=== PATIENT | male | born 1970 | race American Indian/Alaskan Native ===

== ENCOUNTER 2019-02-10 07:53 | Emergency (ER) | payer OTHER ==
[2019-02-10 08:01] VITALS: BP 114/61
[2019-02-10] MEDS ORDERED: TORADOL IM ONE (08:31)
[2019-02-10] MEDS ORDERED: FLEXERIL PO ONE (08:31)
--- NOTE | 2019-02-10 08:33 | Emergency Department Report ---
HPI - General Chief Complaint: Back Pain/Injury Time Seen by Provider: 02/10/19 08:17 - HPI HPI: 48-year-old male presents to the emergency department with a complaint of generalized back pain and spasms that has been going on since last night. He denies of any trauma or known injury. He denies any problems with bowel or bladder, numbness or paresthesias or any neurological deficits. He was brought in by his sister to be seen. He does not have a primary care physician. He has not taken anything for his symptoms prior to arrival today. No recent travel or sick contacts at home. ED Past Medical Hx - Past Medical History Previous Medical History?: No Additional medical history: PNEUMONIA - Surgical History Additional Surgical History: BACK - Social History Smoking Status: Never Smoker Substance Use Type: None - Medications Home Medications: Home Medications Medication Instructions Recorded Confirmed Last Taken Type Cyclobenzaprine HCl [Flexeril 5 MG 5 mg PO TID PRN #10 tab 02/10/19 Unknown Rx TAB] Ibuprofen [Motrin 600 MG tab] 600 mg PO Q8H PRN #20 tablet 02/10/19 Unknown Rx ED Review of Systems ROS: Stated complaint: BACK PAIN Other details as noted in HPI Comment: All other systems reviewed and negative Constitutional: denies: chills, fever Gastrointestinal: denies: abdominal pain Musculoskeletal: back pain. denies: joint swelling Skin: denies: rash, lesions Neurological: denies: weakness, numbness, paresthesias Physical Exam - Physical Exam Vital Signs: Vital Signs 02/10/19 08:00 Temperature 98.3 F Pulse Rate 100 H Respiratory 18 Rate Blood Pressure 114/61 O2 Sat by Pulse 98 Oximetry Physical Exam: GENERAL: The patient is well-developed well-nourished. HENT: Normocephalic. Atraumatic. Patient has moist mucous membranes. EYES: Extraocular motions are intact. NECK: Supple. Trachea is midline. CHEST/LUNGS: Clear to auscultation. There is no respiratory distress noted. HEART/CARDIOVASCULAR: Regular. There is no tachycardia. There is no murmur. ABDOMEN: Abdomen is soft, nontender. Patient has normal bowel sounds. There is no abdominal distention. SKIN: Skin is warm and dry. NEURO: The patient is awake, alert, and oriented. The patient is cooperative. The patient has no focal neurologic deficits. The patient has normal speech. DTR patella +2 over 4 bilaterally. MUSCULOSKELETAL: There is no tenderness or deformity. There is no limitation range of motion. There is no evidence of acute injury. Muscle strength 5 out of 5 upper and lower extremities bilaterally. ED Course Vital Signs 02/10/19 08:00 Temperature 98.3 F Pulse Rate 100 H Respiratory 18 Rate Blood Pressure 114/61 O2 Sat by Pulse 98 Oximetry ED Medical Decision Making - Medical Decision Making This patient presents to the emergency department with some lower back spasms that have been going on since last night. This is atraumatic. He does not have any problems with bowel or bladder, numbness or paresthesias or any neurological deficits. He appears low suspicion for any of the emergent condition such as cauda equina, epidural abscess or cord compression syndrome. No midline pain. For all these reasons, I did not feel any imaging was necessary at this time. He was given a shot of Toradol and Flexeril. Upon reevaluation he is resting comfortably in the spasms appeared to have subsided. He remained in the emergency department until he was picked up by someone to take responsibility for him. He has been given a referral for orthopedist. He will return to the ER with any worsening of his symptoms or any acute distress. - Differential Diagnosis muscle spasm, lumbar strain, UTI Critical Care Time: No Critical care attestation.: If time is entered above; I have spent that time in minutes in the direct care of this critically ill patient, excluding procedure time. ED Disposition Clinical Impression: Muscle spasm of back Back pain Qualifiers: Back pain location: low back pain Chronicity: acute Back pain laterality: bilateral Sciatica presence: without sciatica Qualified Code(s): M54.5 - Low back pain Disposition: DC-01 TO HOME OR SELFCARE Is pt being admited?: No Condition: Stable Instructions: Muscle Spasm (ED), Back Pain (ED) Additional Instructions: Please follow up with a primary care physician in the next few days. I am also giving you a referral for a local orthopedist, Dr. Hernandez, to follow-up guarding or back pains. Return to the emergency Department with any worsening of your symptoms or any acute distress. You have been prescribed a medication that is sedating and therefore should not be taken prior to driving, working, and responsible for children and in no way should be mixed with alcohol of any quantity. Prescriptions: Cyclobenzaprine HCl [Flexeril 5 MG TAB] 5 mg PO TID PRN #10 tab PRN Reason: Muscle Spasm Ibuprofen [Motrin 600 MG tab] 600 mg PO Q8H PRN #20 tablet PRN Reason: Pain Referrals: ALEX HERNANDEZ MD [Staff Physician] - 2-3 Days [facility] [Outside] - 2-3 Days Time of Disposition: 09:40
== END 2019-02-10 09:54 | disposition home or self-care (01) ==
LOC: ED 07:53
DX: M62.830 Muscle spasm of back (principal); Z88.0 Allergy status to penicillin
CPT/HCPCS: 96372; 99282; J1885

== ENCOUNTER 2019-02-15 03:38 | Emergency (ER) | payer OTHER ==
[2019-02-15 04:01] VITALS: BP 177/72
--- NOTE | 2019-02-15 07:42 | Emergency Department Report ---
ED Back Pain/Injury HPI - General Chief Complaint: Back Pain/Injury Stated Complaint: BACK PAIN Time Seen by Provider: 02/15/19 07:25 Source: patient Limitations: No Limitations - History of Present Illness Initial Comments: This is a 48-year-old after [place] male who presents to the emergency room with acute on chronic low back pain. 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 Patient states he has surgery to his back several years ago and every now and then he had an acute flare. Patient states he was seen in an emergency room on last and prescribed Flexeril which is not helping pain. Patient currently reports pain is 10 out of 10 on pain scale and worse with movement. He reports pain as a sharp radiating intensity to her right lower extremity. He denies change in bowel or urinary pattern, weakness, numbness, paresthesias, swelling, bruising, or fever. MD Complaint: back pain Onset/Timin -: week(s) Similar Symptoms Previously: Yes Place: street Radiation: right leg Severity: severe Severity scale (0 -10): 10 Quality: sharp Consistency: intermittent Improves With: none Worsens With: movement Context: bending Associated Symptoms: denies: numbness, difficulty urinating, incontinence, fever/chills Treatments Prior to Arrival: heat therapy, other medications (Flexeril muscle relaxers) - Related Data Previous Rx's Medication Instructions Recorded Last Taken Type Cyclobenzaprine HCl [Flexeril 5 MG 5 mg PO TID PRN #10 tab 02/10/19 02/14/19 Rx TAB] Ibuprofen [Motrin 600 MG tab] 600 mg PO Q8H PRN #20 tablet 02/10/19 02/14/19 Rx methOCARBAMOL [Robaxin TAB] 750 mg PO Q8H PRN #15 tablet 02/15/19 Unknown Rx Allergies Allergy/AdvReac Type Severity Reaction Status Date / Time Penicillins AdvReac Unknown Verified 07/06/15 20:00 ED Review of Systems ROS: Stated complaint: BACK PAIN Other details as noted in HPI Constitutional: denies: chills, fever Respiratory: denies: cough, shortness of breath, wheezing Cardiovascular: denies: chest pain, palpitations Gastrointestinal: denies: abdominal pain, nausea, diarrhea Musculoskeletal: back pain. denies: joint swelling, arthralgia Skin: denies: rash, lesions Neurological: denies: headache, weakness, paresthesias Psychiatric: denies: anxiety, depression ED Past Medical Hx - Past Medical History PNEUMONIA ED Back Pain Physical Exam - Exam General: Vital signs noted. No distress. Alert and acting appropriately. Back/Abdomen: Yes Sacroiliac Tenderness (bilaterally), Yes Straight Leg Raise Pain (right leg), No Abdominal Tenderness, No Perithoracic Tenderness, No Perilumbar Tenderness, No Flank Tenderness Neuro: Yes Normal Sensation, Yes Normal DTR's, Yes Normal Gait, No Motor Weakness ED Course Vital Signs 02/15/19 03:59 Temperature 97.9 F Pulse Rate 94 H Respiratory 18 Rate Blood Pressure 177/72 O2 Sat by Pulse 98 Oximetry ED Medical Decision Making - Medical Decision Making Patient was examined by me. Patient is nontoxic appearing and stable. Vitals are normal. This is acute on chronic low back pain. Patient seen in the emergency room last week after symptoms started and prescribed Flexeril and ibuprofen. States Flexeril no improvement in his symptoms. On focal exam negative spinal tenderness, change in bowel or urinary pattern. Past medical history of back surgery and intermittent back pain. He was referred to orthop edics but never followed up. Given analgesics while in the ER. Start Robaxin for pain. Referral to orthopedics and pain management. Patient discharged home in stable condition. Critical care attestation.: If time is entered above; I have spent that time in minutes in the direct care of this critically ill patient, excluding procedure time. ED Disposition Clinical Impression: Muscle spasm of back Back pain Qualifiers: Back pain location: low back pain Chronicity: acute Back pain laterality: bilateral Sciatica presence: with sciatica Sciatica laterality: sciatica of rig ht side Qualified Code(s): M54.41 - Lumbago with sciatica, right side Disposition: TO HOME OR SELFCARE Is pt being admited?: No Does the pt Need Aspirin: No Condition: Stable Instructions: Chronic Back Pain (ED), Low Back Strain (ED) Additional Instructions: Rest Use ice or heat on affected area for 20 minutes and off for 2 hours. Take pain medication every 6-8 hours as needed for pain. Don't drive or operate heavy machinery while taking the Robaxin muscle relaxers because they may cause drowsiness. Follow up with Primary Care Provider in 2-3 days. Prescriptions: methOCARBAMOL [Robaxin TAB] 750 mg PO Q8H PRN #15 tablet PRN Reason: Muscle Spasm Referrals: [facility] [Outside] - 3-5 Days CAMERON LINCOLN MD [Primary Care Provider] - 3-5 Days ALEX GARCIA MD [Staff Physician] - 3-5 Days [facility] [Provider Group] - 3-5 Days [facility] [Provider Group] - 3-5 Days Forms: Work/School Release Form(ED) Time of Disposition: 08:41
[2019-02-15] MEDS ORDERED: TORADOL IM ONE (07:44)
[2019-02-15] MEDS ORDERED: TORADOL ONE (08:00)
== END 2019-02-15 08:54 | disposition home or self-care (01) ==
LOC: ED 03:38
DX: M54.41 Lumbago with sciatica, right side (principal); G89.29 Other chronic pain; Z88.0 Allergy status to penicillin; Z79.899 Other long term (current) drug therapy
CPT/HCPCS: 96372; 99282; J1885

== ENCOUNTER 2019-04-28 15:49 | Emergency (ER) | payer OTHER ==
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
[2019-04-28 19:00] VITALS: BP 146/90
== END 2019-04-28 18:57 | disposition home or self-care (01) ==
LOC: ED 15:49
DX: S39.012A Strain of muscle, fascia and tendon of lower back, initial encounter (principal); I10 Essential (primary) hypertension; V49.49XA Driver injured in collision with other motor vehicles in traffic accident, initial encounter; Y93.9 Activity, unspecified; Y92.89 Other specified places as the place of occurrence of the external cause; Y99.8 Other external cause status
CPT/HCPCS: 72070; 72100; 99283

== ENCOUNTER 2019-07-27 18:34 | Emergency (ER) | payer SELFPAY | END 2019-07-27 20:22 | disposition left against medical advice (07) | LOC: ED 18:34 | DX: R10.9 Unspecified abdominal pain (principal); Z53.21 Procedure and treatment not carried out due to patient leaving prior to being seen by health care provider ==

== ENCOUNTER 2019-10-22 05:15 | Emergency (ER) | payer OTHER ==
--- NOTE | 2019-10-22 07:35 | Emergency Department Report ---
ED Medical Clearance HPI - General Chief complaint: Medical Clearance Stated complaint: MED CLEARANCE Time Seen by Provider: 10/22/19 07:15 Source: patient Mode of arrival: Ambulatory Limitations: No Limitations - History of Present Illness Initial comments: This is a 48-year-old -Irish male who presents to the emergency room for medical clearance. Past medical history of hypertension. Patient states he is going to a detox center in [facility]. He is hoping to be admitted today. His sister is taking him there as soon as he leaves here. Patient states he last used crack cocaine and marijuana a few minutes prior to arrival. He denies chest pain, palpitations, shortness of breath, wheezing, cough, chills, nausea, vomiting, or diarrhea. MD Complaint: medical clearance request Reason for Medical Clearance: intoxication Place: home Alledged Intoxication: Yes Compliant with Home Medications: No Treatments Prior to Arrival: none Home medications: Previous Rx's Medication Instructions Recorded Last Taken Type Cyclobenzaprine HCl [Flexeril 5 MG 5 mg PO TID PRN #10 tab 02/10/19 02/14/19 Rx TAB] Ibuprofen [Motrin 600 MG tab] 600 mg PO Q8H PRN #20 tablet 02/10/19 02/14/19 Rx methOCARBAMOL [Robaxin TAB] 750 mg PO Q8H PRN #15 tablet 02/15/19 Unknown Rx Ibuprofen [Motrin 800 MG tab] 800 mg PO Q8HR PRN #14 tablet 04/28/19 Unknown Rx methOCARBAMOL [Robaxin TAB] 500 mg PO Q6H PRN #14 tablet 04/28/19 Unknown Rx traMADoL [Ultram] 50 mg PO Q6HR PRN #12 tablet 04/28/19 Unknown Rx Allergies/Adverse reactions: Allergies Allergy/AdvReac Type Severity Reaction Status Date / Time Penicillins AdvReac Unknown Verified 10/22/19 05:22 ED Review of Systems ROS: Stated complaint: MED CLEARANCE Other details as noted in HPI Constitutional: denies: chills, fever ENT: denies: ear pain, throat pain Respiratory: denies: cough, shortness of breath, wheezing Cardiovascular: denies: chest pain, palpitations Gastrointestinal: denies: abdominal pain, nausea, diarrhea Musculoskeletal: denies: back pain, joint swelling, arthralgia Skin: denies: rash, lesions Neurological: denies: headache, weakness, paresthesias Psychiatric: denies: anxiety, depression ED Past Medical Hx - Past Medical History Hx Hypertension: Yes Additional medical history: PNEUMONIA - Surgical History Additional Surgical History: BACK - Social History Smoking Status: Current Every Day Smoker Substance Use Type: Alcohol, Cocaine, Heroin, Marijuana, Non Opiate Pain, Methamphetamines - Medications Home Medications: Home Medications Medication Instructions Recorded Confirmed Last Taken Type Cyclobenzaprine HCl [Flexeril 5 MG 5 mg PO TID PRN #10 tab 02/10/19 02/14/19 Rx TAB] Ibuprofen [Motrin 600 MG tab] 600 mg PO Q8H PRN #20 tablet 02/10/19 02/14/19 Rx methOCARBAMOL [Robaxin TAB] 750 mg PO Q8H PRN #15 tablet 02/15/19 Unknown Rx Ibuprofen [Motrin 800 MG tab] 800 mg PO Q8HR PRN #14 tablet 04/28/19 Unknown Rx methOCARBAMOL [Robaxin TAB] 500 mg PO Q6H PRN #14 tablet 04/28/19 Unknown Rx traMADoL [Ultram] 50 mg PO Q6HR PRN #12 tablet 04/28/19 Unknown Rx ED Physical Exam - General Limitations: No Limitations General appearance: alert, in no apparent distress - Respiratory Respiratory exam: Present: normal lung sounds bilaterally. Absent: respiratory distress - Cardiovascular Cardiovascular Exam: Present: tachycardia. Absent: systolic murmur, diastolic murmur, rubs, gallop - GI/Abdominal GI/Abdominal exam: Present: soft, normal bowel sounds. Absent: distended, tenderness, guarding, rebound, rigid - Extremities Exam Extremities exam: Present: normal inspection - Back Exam Back exam: Present: normal inspection - Neurological Exam Neurological exam: Present: alert, oriented X3, normal gait - Psychiatric Psychiatric exam: Present: normal affect, normal mood - Skin Skin exam: Present: warm, dry, intact, normal color. Absent: rash ED Course Vital Signs 10/22/19 10/22/19 05:19 09:00 Temperature 98.3 F Pulse Rate 113 H 92 H Respiratory 20 18 Rate Blood Pressure 133/83 Blood Pressure 130/82 [Left] O2 Sat by Pulse 98 98 Oximetry ED Medical Decision Making - Lab Data Result diagrams: 10/22/19 07:42 10/22/19 07:42 - Medical Decision Making This is a 48-year-old male who presents to the emergency room for medical clearance for detox. Slight tachycardia on arrival. Past medical history of hypertension. Admits to recent use of crack cocaine and marijuana prior to arrival. Airway maintained. Work-up: Mental health protocol labs. Drug toxicology positive for cocaine and marijuana. All other labs unremarkable. Exam and findings are consistent with polysubstance abuse. Patient denies funes icidal or homicidal ideation. He is able to ambulate without difficulty and tolerating p.o. Vitals stable prior to DC. Plan to DC home with medical clearance for outpatient detox clinic. Given strict return precautions. Discharge stable. ED Disposition Clinical Impression: Medical clearance for psychiatric admission, Polysubstance (excluding opioids) dependence Disposition: DC-01 TO HOME OR SELFCARE Is pt being admited?: No Condition: Stable Instructions: Polysubstance Abuse (ED) Additional Instructions: Follow-up with outpatient mental health facility for detox within 24 hours of discharge. Referrals: [facility] [Outside] - 3-5 Days [facility] [Other] - 3-5 Days Time of Disposition: 08:54
[2019-10-22 07:58] LABS: Bilirubin,Urine NEG (Negative); Blood,Urine NEG (Negative); Color,Urine Yellow (Yellow); Mucus,Urine 2+ /HPF; Protein,Urine <15 mg/dL mg/dL (Negative)
[2019-10-22 08:04] LABS: Amphetamine Screen,Urine PRESUMPTIVE NEGATIVE; Benzodiazepines Screen,Urine PRESUMPTIVE NEGATIVE; Methadone Screen,Urine PRESUMPTIVE NEGATIVE; Opiate Screen,Urine PRESUMPTIVE NEGATIVE
[2019-10-22 08:17] LABS: Cannabinoid Screen,Urine PRESUMPTIVE POSITIVE; Cocaine Screen,Urine PRESUMPTIVE POSITIVE
[2019-10-22 08:20] LABS: Basophils % (Auto) 0.7 % (0.0-1.8); Eosinophils # (Auto) 0.2 K/mm3 (0.0-0.4); Hematocrit 37.8 % (35.5-45.6); Hemoglobin 13.3 gm/dl (11.8-15.2); Lymphocytes # (Auto) 2.3 K/mm3 (1.2-5.4); Lymphocytes % (Auto) 36.4 % (13.4-35.0); Mean Corpuscular HGB Conc 35 % (32-34); Mean Corpuscular Volume 80 fl (84-94); Monocytes # (Auto) 0.5 K/mm3 (0.0-0.8); Monocytes % (Auto) 8.1 % (0.0-7.3); Platelet Count 403 K/mm3 (140-440); Red Blood Count 4.72 M/mm3 (3.65-5.03); Red Cell Distribution Width 14.8 % (13.2-15.2)
[2019-10-22 08:42] LABS: BUN/Creatinine Ratio 15; Blood Urea Nitrogen 17 mg/dL (9-20); Calcium 9.1 mg/dL (8.4-10.2); Hemolysis Index 7
[2019-10-22 09:01] VITALS: BP 130/82
== END 2019-10-22 09:00 | disposition home or self-care (01) ==
LOC: ED 05:15
DX: F19.20 Other psychoactive substance dependence, uncomplicated (principal); I10 Essential (primary) hypertension; F17.200 Nicotine dependence, unspecified, uncomplicated; F12.10 Cannabis abuse, uncomplicated; Z04.6 Encounter for general psychiatric examination, requested by authority; Z79.899 Other long term (current) drug therapy
CPT/HCPCS: 36415; 80048; 80307; 80320; 81001; 85025; G0480

== ENCOUNTER 2019-10-29 05:55 | Emergency (ER) | payer OTHER ==
--- NOTE | 2019-10-29 07:10 | Emergency Department Report ---
ED General Adult HPI - General Chief complaint: Psych Stated complaint: MED CLEARANCE Time Seen by Provider: 10/29/19 06:48 Source: patient Mode of arrival: Ambulatory Limitations: No Limitations - History of Present Illness Initial comments: This is a 48-year-old man who presented on October 21 under similar circumstances. He stated that he has made no effort to secure a detox since that visit. He states that he lives with his sister who is "more like a mother". His triage note is indicating suicidal ideation which he now does not have as per my en counter. He states that he was thinking about walking in front of a truck 2 weeks ago. He did not mention that when he was here on October 21. He states that he sometimes feels suicidal when he is abusing drugs. He has a long time history of marijuana, cocaine and other substances abuse. He states his last detox was more than 4 years ago when he resided in [place]. He denies any psychiatric admissions in the [place] area. He really has no acute complaints at this time. -: Gradual, year(s) Consistency: intermittent, now resolved Improves with: none Worsens with: none Associated Symptoms: denies other symptoms - Related Data Previous Rx's Medication Instructions Recorded Last Taken Type Cyclobenzaprine HCl [Flexeril 5 MG 5 mg PO TID PRN #10 tab 02/10/19 02/14/19 Rx TAB] Ibuprofen [Motrin 600 MG tab] 600 mg PO Q8H PRN #20 tablet 02/10/19 02/14/19 Rx methOCARBAMOL [Robaxin TAB] 750 mg PO Q8H PRN #15 tablet 02/15/19 Unknown Rx Ibuprofen [Motrin 800 MG tab] 800 mg PO Q8HR PRN #14 tablet 04/28/19 Unknown Rx methOCARBAMOL [Robaxin TAB] 500 mg PO Q6H PRN #14 tablet 04/28/19 Unknown Rx traMADoL [Ultram] 50 mg PO Q6HR PRN #12 tablet 04/28/19 Unknown Rx Allergies Allergy/AdvReac Type Severity Reaction Status Date / Time Penicillins AdvReac Unknown Verified 10/22/19 05:22 ED Review of Systems ROS: Stated complaint: MED CLEARANCE Other details as noted in HPI Constitutional: denies: chills, fever Eyes: denies: eye pain, eye discharge, vision change ENT: denies: ear pain, throat pain Respiratory: denies: cough, shortness of breath, wheezing Cardiovascular: denies: chest pain, palpitations Endocrine: no symptoms reported Gastrointestinal: denies: abdominal pain, nausea, diarrhea Genitourinary: denies: urgency, dysuria Musculoskeletal: denies: back pain, joint swelling, arthralgia Skin: denies: rash, lesions Neurological: denies: headache, weakness, paresthesias Psychiatric: suicidal thoughts (Intermittently denies now). denies: anxiety, depression Hematological/Lymphatic: denies: easy bleeding, easy bruising ED Past Medical Hx - Past Medical History Hx Hypertension: Yes Additional medical history: PNEUMONIA - Surgical History Additional Surgical History: BACK - Social History Smoking Status: Current Every Day Smoker Substance Use Type: Alcohol, Cocaine, Heroin, Marijuana, Methamphetamines - Medications Home Medications: Home Medications Medication Instructions Recorded Confirmed Last Taken Type Cyclobenzaprine HCl [Flexeril 5 MG 5 mg PO TID PRN #10 tab 02/10/19 02/14/19 Rx TAB] Ibuprofen [Motrin 600 MG tab] 600 mg PO Q8H PRN #20 tablet 02/10/19 02/14/19 Rx methOCARBAMOL [Robaxin TAB] 750 mg PO Q8H PRN #15 tablet 02/15/19 Unknown Rx Ibuprofen [Motrin 800 MG tab] 800 mg PO Q8HR PRN #14 tablet 04/28/19 Unknown Rx methOCARBAMOL [Robaxin TAB] 500 mg PO Q6H PRN #14 tablet 04/28/19 Unknown Rx traMADoL [Ultram] 50 mg PO Q6HR PRN #12 tablet 04/28/19 Unknown Rx ED Physical Exam - General Limitations: No Limitations General appearance: alert, in no apparent distress - Head Head exam: Present: atraumatic, normocephalic - Eye Eye exam: Present: normal appearance. Absent: scleral icterus - ENT ENT exam: Present: mucous membranes moist - Neck Neck exam: Present: normal inspection. Absent: tenderness, meningismus - Respiratory Respiratory exam: Present: normal lung sounds bilaterally. Absent: respiratory distress - Cardiovascular Cardiovascular Exam: Present: regular rate, normal rhythm. Absent: systolic murmur, diastolic murmur, rubs, gallop - GI/Abdominal GI/Abdominal exam: Present: soft, normal bowel sounds. Absent: distended, tenderness, guarding, rebound, rigid - Rectal Rectal exam: Present: deferred - Extremities Exam Extremities exam: Present: normal inspection - Back Exam Back exam: Present: normal inspection - Neurological Exam Neurological exam: Present: alert, oriented X3, CN II-XII intact. Absent: motor sensory deficit - Psychiatric Psychiatric exam: Present: normal affect, normal mood - Skin Skin exam: Present: warm, dry, intact, normal color. Absent: rash ED Course Vital Signs 10/29/19 10/29/19 05:57 07:43 Temperature 97.6 F 98.3 F Pulse Rate 97 H 88 Respiratory 18 20 Rate Blood Pressure 135/80 Blood Pressure 114/70 [Right] O2 Sat by Pulse 100 100 Oximetry - Reevaluation(s) Reevaluation #1: Patient was seen and evaluated by mental health counselor. It was determined that he had no 1013 criteria. He was given outpatient referral. 10/29/19 11:37 ED Medical Decision Making - Lab Data Result diagrams: 10/29/19 06:56 10/29/19 06:56 Laboratory Results - last 24 hr 10/29/19 10/29/19 10/29/19 06:56 06:56 06:56 WBC RBC Hgb Hct MCV MCH MCHC RDW Plt Count Lymph % (Auto) [place] % (Auto) Eos % (Auto) Baso % (Auto) Lymph # [place] # Eos # Baso # Seg Neutrophils % Seg Neutrophils # Sodium 140 Potassium 3.7 Chloride 102.5 Carbon Dioxide 24 Anion Gap 17 BUN 11 Creatinine 0.8 Estimated GFR > 60 BUN/Creatinine Ratio 14 Glucose 79 Calcium 9.4 Total Creatine Kinase CK-MB (CK-2) CK-MB (CK-2) Rel Index Salicylates < 0.3 L Acetaminophen < 5.0 L Plasma/Serum Alcohol 10/29/19 10/29/19 10/29/19 06:56 06:56 06:56 WBC 6.6 RBC 4.81 Hgb 13.3 Hct 39.3 MCV 82 L MCH 28 MCHC 34 RDW 14.7 Plt Count 338 Lymph % (Auto) 31.7 [place] % (Auto) 9.1 H Eos % (Auto) 3.2 Baso % (Auto) 1.1 Lymph # 2.1 [place] # 0.6 Eos # 0.2 Baso # 0.1 Seg Neutrophils % 54.9 Seg Neutrophils # 3.6 Sodium Potassium Chloride Carbon Dioxide Anion Gap BUN Creatinine Estimated GFR BUN/Creatinine Ratio Glucose Calcium Total Creatine Kinase 962 H CK-MB (CK-2) 9.6 H CK-MB (CK-2) Rel Index 0.9 Salicylates Acetaminophen Plasma/Serum Alcohol < 0.01 Laboratory Results - last 24 hr 10/29/19 10/29/19 10/29/19 06:56 06:56 06:56 WBC RBC Hgb Hct MCV MCH MCHC RDW Plt Count Lymph % (Auto) [place] % (Auto) Eos % (Auto) Baso % (Auto) Lymph # [place] # Eos # Baso # Seg Neutrophils % Seg Neutrophils # Sodium 140 Potassium 3.7 Chloride 102.5 Carbon Dioxide 24 Anion Gap 17 BUN 11 Creatinine 0.8 Estimated GFR > 60 BUN/Creatinine Ratio 14 Glucose 79 Calcium 9.4 Total Creatine Kinase CK-MB (CK-2) CK-MB (CK-2) Rel Index Salicylates < 0.3 L Acetaminophen < 5.0 L Plasma/Serum Alcohol 10/29/19 10/29/19 10/29/19 06:56 06:56 06:56 WBC 6.6 RBC 4.81 Hgb 13.3 Hct 39.3 MCV 82 L MCH 28 MCHC 34 RDW 14.7 Plt Count 338 Lymph % (Auto) 31.7 [place] % (Auto) 9.1 H Eos % (Auto) 3.2 Baso % (Auto) 1.1 Lymph # 2.1 [place] # 0.6 Eos # 0.2 Baso # 0.1 Seg Neutrophils % 54.9 Seg Neutrophils # 3.6 Sodium Potassium Chloride Carbon Dioxide Anion Gap BUN Creatinine Estimated GFR BUN/Creatinine Ratio Glucose Calcium Total Creatine Kinase 962 H CK-MB (CK-2) 9.6 H CK-MB (CK-2) Rel Index 0.9 Salicylates Acetaminophen Plasma/Serum Alcohol < 0.01 Critical care attestation.: If time is entered above; I have spent that time in minutes in the direct care of this critically ill patient, excluding procedure time. ED Disposition Clinical Impression: Polysubstance abuse Rhabdomyolysis Qualifiers: Rhabdomyolysis type: non-traumatic Qualified Code(s): M62.82 - Rhabdomyolysis Disposition: - TO HOME OR SELFCARE Is pt being admited?: No Does the pt Need Aspirin: No Condition: Stable Instructions: Suicide Prevention for Adults (ED), Polysubstance Abuse (ED) Additional Instructions: Outpatient referral as per mental health counselor. Increase your fluid intake. Return to the emergency department any acute change or problem. Referrals: PRIMARY CARE [Primary Care Provider] - 3-5 Days [facility] [Provider Group] - 2-3 Days Time of Disposition: 11:38
[2019-10-29 07:13] LABS: Basophils # (Auto) 0.1 K/mm3 (0.0-0.1); Basophils % (Auto) 1.1 % (0.0-1.8); Eosinophils # (Auto) 0.2 K/mm3 (0.0-0.4); Eosinophils % (Auto) 3.2 % (0.0-4.3); Hematocrit 39.3 % (35.5-45.6); Hemoglobin 13.3 gm/dl (11.8-15.2); Lymphocytes # (Auto) 2.1 K/mm3 (1.2-5.4); Lymphocytes % (Auto) 31.7 % (13.4-35.0); Mean Corpuscular HGB Conc 34 % (32-34); Mean Corpuscular Volume 82 fl (84-94); Monocytes # (Auto) 0.6 K/mm3 (0.0-0.8); Monocytes % (Auto) 9.1 % (0.0-7.3); Platelet Count 338 K/mm3 (140-440); Red Blood Count 4.81 M/mm3 (3.65-5.03); Red Cell Distribution Width 14.7 % (13.2-15.2)
[2019-10-29 07:32] LABS: BUN/Creatinine Ratio 14; Blood Urea Nitrogen 11 mg/dL (9-20); Calcium 9.4 mg/dL (8.4-10.2); Hemolysis Index 4
[2019-10-29 07:36] LABS: Creatine Kinase MB 9.6 ng/mL (0.0-4.0)
[2019-10-29 07:44] VITALS: BP 114/70
== END 2019-10-29 12:45 | disposition home or self-care (01) ==
LOC: ED 05:55
DX: M62.82 Rhabdomyolysis (principal); F19.10 Other psychoactive substance abuse, uncomplicated; I10 Essential (primary) hypertension; F17.200 Nicotine dependence, unspecified, uncomplicated; F14.10 Cocaine abuse, uncomplicated; F12.10 Cannabis abuse, uncomplicated; F15.10 Other stimulant abuse, uncomplicated; Z79.899 Other long term (current) drug therapy; Z79.1 Long term (current) use of non-steroidal anti-inflammatories (NSAID); Z98.890 Other specified postprocedural states; Z88.0 Allergy status to penicillin
CPT/HCPCS: 36415; 80048; 80320; 82550; 82553; 85025; G0480